=== PATIENT | female | born 1985 | race Caucasian/White ===

== ENCOUNTER 2019-04-21 20:48 | Inpatient (IN) | payer MEDICAID ==
[~2019-04-21] VITALS: Ht 148.6 cm; Wt 73.6 kg
[~2019-04-21 20:48] MED LIST: PREN1TAB74 PO
[2019-04-21 21:13] VITALS: BP 119/72; PULSE 67; RESP 16
[2019-04-21] MEDS ORDERED: FERR134T PO (21:18)
[2019-04-21] MEDS ORDERED: LEVO50TA89 PO (21:18)
[2019-04-21] MEDS ORDERED: LACTATED RINGER'S 1,000 ML IV PRN (22:42)
--- NOTE | 2019-04-21 22:59 | TRIAGE ---
OB Triage Datetime Report Generated by CPN: 04/21/2019 22:59 Datetime: 04/21/2019 22:35 Time of Arrival: 04/21/2019 20:38 EGA: 40.0 Arrived By: Ambulatory Arrived From: Home Chief Complaint: w/ orders for NST/BPP/EFW and c/o ucs q10 min since 1600 and sm amt bleeding Movement: Present Contractions: Regular Time Contractions Began: 04/21/2019 16:00 Contractions: q10 Rupture of Membranes: Denies Vaginal Bleeding: Small Vaginal Discharge: Present Recent Sexual Intercouse: Denies Abdominal Trauma: Not Applicable Patient Complaints: Contractions Time Provider Notified: 04/21/2019 22:35 Provider Notified: Dr Lomeli Initial Plan: NST/BPP/EFW, SVE,UA,URINE CULTURE Datetime: 04/21/2019 22:32 Stage of : OB Triage Labor Evaluation Frequency: 3-7 Monitor Mode: External Quality: Moderate Pattern: Normal: <= 5 Contractions in 10 Minutes Resting Tone [place]: Relaxed Heart Rate FHR Baseline Rate: 135 Monitor Mode: External US FHR Baseline Changes: No Baseline Change Variability: Moderate 6-25 bpm Accelerations: 15X15 Decelerations: Variable Category: Category II Pain Assessment Pain Scale: 5 Pain Presence: Intermittent Pain Type: Contraction Pain Location: Abdomen Vaginal Exam Dilatation (cms): 2.5 Effacement (%): 70 Station: -2 Exam By: E Rashawn Membrane Status: Intact Vaginal Bleeding: Normal Show Cervix, Consistency: Soft Cervix, Position: Posterior Presentation 'A': Cephalic Datetime: 04/21/2019 21:41 Stage of : OB Triage Labor Evaluation Frequency: 3-8 Monitor Mode: External Duration (sec)2399: 40-60 Quality: Mild Pattern: Normal: <= 5 Contractions in 10 Minutes Resting Tone [place]: Relaxed Heart Rate FHR Baseline Rate: 140 Monitor Mode: External US FHR Baseline Changes: No Baseline Change Variability: Moderate 6-25 bpm Accelerations: 15X15 Decelerations: None Category: Category I Datetime: 04/21/2019 21:06 Stage of : OB Triage Maternal Assessment Level of Consciousness: Fully Conscious Headache: Denies Blurred Vision: No Nausea/Vomiting: Denies RUQ Epigastric Pain: Denies Facial Edema: None Monitor Mode: External Monitor Mode: External US Comments: FHR 140 Pain Assessment Pain Scale: 5 Pain Presence: Intermittent Pain Type: Contraction Pain Location: Abdomen
[2019-04-21] MEDS ORDERED: METHYLERGONOVINE 0.2 MG INJ IM PRN (23:00)
[2019-04-21] MEDS ORDERED: BUTORPHANOL 2 MG INJ IV PRN ×2 (23:00)
[2019-04-21] MEDS ORDERED: OXYTOCIN 30 UNITS/LR 500 ML IV SCH ×2 (23:00)
[2019-04-21] MEDS ORDERED: LIDOCAINE 1% (MPF) 30 ML INJ INJ PRN (23:00)
[2019-04-21] MEDS ORDERED: MISOPROSTOL 200 MCG TAB PR PRN (23:00)
[2019-04-21] MEDS ORDERED: IBUPROFEN 600 MG TAB PO PRN (23:00)
[2019-04-21] MEDS ORDERED: CARBOPROST 250 MCG INJ IM PRN (23:00)
[2019-04-21] MEDS ORDERED: OXYTOCIN 30 UNITS/LR 500 ML IV PRN (23:00)
[2019-04-21] MEDS: LACTATED RINGER'S 1,000 ML IV SCH (23:24)
[2019-04-22] MEDS: LACTATED RINGER'S 1,000 ML IV SCH (02:34)
[2019-04-22] MEDS ORDERED: OXYTOCIN 30 UNITS/LR 500 ML IV SCH (03:23)
--- NOTE | 2019-04-22 03:23 | LDN ---
Date/Time of Note Date/Time of Note DATE: 04/22/19 TIME: 03:16 Delivery Summary Patient in dorsal lithotomy position. Prepped in sterille fasion. Pushing with contractionts. head delivered atraumatically. Nouse and mouth sucction. Anterior and posterior shoulders delivered. Infant hand of waithing RN for evaluation. Cord blood sampled. Local anesthesia . Lydocaine [address] degree vaginal laceration repaired wirh 2-0 chromic. Placenta delivered spontaneusly, no bleeding. Count correct , [facility].E[facility] 300 cc Weeks of Gestation 40 Placenta Delivered: Spontaneously Meconium: none Episiotomy: No Anesthesia type: Local Estimated blood loss: 300 Sponge & Needle done & correct: Yes All needle counts correct: Yes JONN DIOP MD Apr 22, 2019 03:23
[2019-04-22] MEDS ORDERED: MISOPROSTOL 200 MCG TAB PR PRN (03:30)
[2019-04-22] MEDS ORDERED: CARBOPROST 250 MCG INJ IM PRN (03:30)
[2019-04-22] MEDS ORDERED: ACETAMINOPHEN 325 MG TAB PO PRN (03:30)
[2019-04-22] MEDS ORDERED: OXYTOCIN 30 UNITS/LR 500 ML IV PRN (03:30)
[2019-04-22] MEDS ORDERED: ONDANSETRON 4 MG INJ IV PRN (03:30)
[2019-04-22] MEDS ORDERED: METHYLERGONOVINE 0.2 MG INJ IM PRN (03:30)
[2019-04-22] MEDS ORDERED: NACL 0.9% 3 ML SYG IV SCH (03:30)
--- NOTE | 2019-04-22 03:32 | HP ---
Date/Time of Note Date/Time of Note DATE: 04/22/19 TIME: 03:29 OB - History Hx of Present Chief Complaint: c/o contractionts : 4 Para: 3 Care: Good Care Medical Complications: None Past Family/Social History * Past Medical, Surgical, Family and Obstetric Histories reviewed from chart. OB Admission Exam Vital Signs Vital Signs Vital Signs Date Temp Pulse Resp B/P (MAP) Pulse Ox O2 O2 Flow FiO2 Time Delivery Rate 04/21/19 98.2 67 16 119/72 Room Air 21:13 (88) Physical Exam Abdomen: WNL Extremities: Normal Cervical Dilatation: 10cm Effacement: 100% Station: +2 Membranes: Ruptured Amniotic Fluid: Clear Heart Rate: 140's Accelerations: Accelerations Present Contractions on Admission: 6-10 Minutes Apart Last 72 hours Lab Results CBC & BMP 04/21/19 23:24 OB Assessment/Plan Reason for admission: active labor Other plan: prepare for delivery JONN DIOP MD Apr 22, 2019 03:31
[2019-04-22 04:45] VITALS: BP 109/62; PULSE 62; RESP 18
[2019-04-22] MEDS: IBUPROFEN 600 MG TAB PO SCH ×4 (05:20→23:46)
[2019-04-22] MEDS: LEVOTHYROXINE 50 MCG TAB PO SCH (06:23)
[2019-04-22 07:30] VITALS: BP 100/61; PULSE 68; RESP 16
[2019-04-22] MEDS: SENNA/DOCUSATE NA (8.6MG/50MG) TAB PO SCH ×2 (09:04→21:27)
[2019-04-22] MEDS: LANOLIN HPA 1 PKT TOP PRN (14:52)
[2019-04-22 15:13] VITALS: BP 99/58; PULSE 66; RESP 16
[2019-04-22 19:10] VITALS: BP 103/57; PULSE 65; RESP 18
[2019-04-23 03:29] VITALS: BP 109/69; PULSE 66; RESP 18
[2019-04-23] MEDS: IBUPROFEN 600 MG TAB PO SCH ×4 (05:42→23:48)
[2019-04-23] MEDS: LEVOTHYROXINE 50 MCG TAB PO SCH (06:17)
[2019-04-23 07:45] VITALS: BP 112/75; PULSE 58; RESP 16
[2019-04-23] MEDS: SENNA/DOCUSATE NA (8.6MG/50MG) TAB PO SCH ×2 (09:10→21:28)
--- NOTE | 2019-04-23 15:42 | DS ---
Date/Time of Note Date/Time of Note Home today or next day DATE: 04/23/19 TIME: 15:40 Obstetrical Discharge Record Final Diagnosis Final Diagnosis: Term delivered Other Final Diagnosis Status post vaginal delivery Vaginal Delivery Obstetrical Delivery: Spontaneous, Laceration, Repaired Condition on Discharge Physical Assessment Last Vitals: See nurse's notes Voiding: Yes Bowel Movement: Yes Breast: Soft, non-tender, Filling Fundus: Firm Abdomen and Incision: Abdomen is soft with firm fundus Episiotomy: Perineum is healing well and appears clean Calf Tenderness: No Patient Condition: Good EPI ARTIS MD Apr 23, 2019 15:41
[2019-04-23] MEDS ORDERED: IBUP-1542 PO (15:43)
--- NOTE | 2019-04-23 15:43 | PD.PPDC ---
[employer] Discharge Instruction Provider Information Physician Information 3-year-old female had spontaneous vaginal delivery Diagnosis Hocca4Lc Final Diagnosis: Qritc3q Status post vaginal delivery Condition [id number] Patient Condition: Srmqe5a Good Diet Mwgki0Hc Diet: Otmpv4z Resume Regular Diet Activity/Restrictions [id number] Activity: Uzdzi2o Normal Activity May Shower Gztmf3Lg Restrictions: Yawcq1t Nothing in the Vagina [id number] Return to Work or School: Mdelq9a Jun 05, 2019 Follow-up Follow-up with Physician: 2, 4, Week/Weeks Return to clinic for [id number] OB Instructions: Zrdcy3w Breast Tenderness Depression Comment: Pelvic rest for 6 weeks EPI ARTIS MD Apr 23, 2019 15:43
[2019-04-23 15:45] VITALS: BP 108/62; PULSE 74; RESP 16
[2019-04-23 19:10] VITALS: BP 118/64; PULSE 66; RESP 18
[2019-04-23] MEDS: LANOLIN HPA 1 PKT TOP PRN (23:47)
[2019-04-24 04:00] VITALS: BP 103/62; PULSE 67; RESP 18
[2019-04-24] MEDS: IBUPROFEN 600 MG TAB PO SCH ×2 (05:44→12:03)
[2019-04-24] MEDS: LEVOTHYROXINE 50 MCG TAB PO SCH (05:44)
[2019-04-24 07:30] VITALS: BP 86/51; PULSE 86; RESP 18
[2019-04-24 08:00] VITALS: BP 113/69; PULSE 72; RESP 18
[2019-04-24] MEDS: SENNA/DOCUSATE NA (8.6MG/50MG) TAB PO SCH (09:36)
--- NOTE | 2019-04-25 16:21 | DELSUM ---
Delivery Summary A-C Datetime Report Generated by CPN: 04/25/2019 16:21 DELIVERY PERSONNEL Narcotics Detective: Osman Rosalia MATERNAL INFORMATION Delivery Anesthesia: None Medications in Delivery: 30 units pitocin Delivery QBL (ml): 300 Placenta Cultured: No Maternal Complications: None LABOR SUMMARY EDC: 04/21/2019 00:00 No. Babies in Womb: 1 Attempted: No Labor Anesthesia: None LABOR INFORMATION Reason for Induction: Not Applicable Onset of Labor: 04/21/2019 16:00 Complete Dilatation: 04/22/2019 02:57 Oxytocin: N/A Group B Beta Strep: Negative Antibiotics # of Doses: 0 Steroids Given: None Reason Steroids Not Administered: Not Applicable MEMBRANES Membranes Rupture Method: Spontaneous Rupture of Membranes: 04/22/2019 02:57 Length of Rupture (hr): 0.00 Amniotic Fluid Color: Light Meconium Amniotic Fluid Amount: Moderate Amniotic Fluid Odor: None STAGES OF LABOR Stage 1 hr: 10 Stage 1 min: 57 Stage 2 hr: 0 Stage 2 min: 0 Stage 3 hr: 0 Stage 3 min: 5 Total Time in Labor hr: 11 Total Time in Labor min: 2 VAGINAL DELIVERY Episiotomy: None Laceration Extension: First Degree Laceration Type: Vaginal Laceration Repair: Not Applicable Initial Vag Sponge Count: 10 Final Vag Sponge Count: 10 Initial Vag Sharps Count: 1 Final Vag Sharps Count: 2 Sponge Count Correct: Yes; Vaginal Sweep Performed Sharps Count Correct: Yes BABY A INFORMATION Infant Delivery Date/Time: 04/22/2019 02:57 Method of Delivery: Vaginal Born in Route : No : N/A Forceps: N/A Vacuum Extraction: N/A Shoulder Dystocia : N/A SHOULDER DYSTOCIA BABY A Infant Delivery Date/Time: 04/22/2019 02:57 PRESENTATION/POSITION BABY A Presentation: Cephalic Cephalic Presentation: Face Vertex Position: Left Occipital Anterior Breech Presentation: N/A PLACENTA INFORMATION BABY A Placenta Delivery Time : 04/22/2019 03:02 Placenta Method of Delivery: Spontaneous Placenta Status: Delivered SCORES BABY A Heart Rate 1 min: >100 bpm Resp Effort 1 min: Good Cry Reflex Irritability 1 min: Cough/Sneeze/Pulls Away Muscle Tone 1 min: Active Motion Color 1 min: Blue/Pale Resuscitation Effort 1 min: Tactile Stimulation SCORE 1 MIN: 8 Heart Rate 5 min: >100 bpm Resp Effort 5 min: Good Cry Reflex Irritability 5 min: Cough/Sneeze/Pulls Away Muscle Tone 5 min: Active Motion Color 5 min: Body [place], Extremit Blue Resuscitation Effort 5 min: Tactile Stimulation SCORE 5 MIN: 9 INFORMATION BABY A Gestational Age at Delivery: 40.1 Gestational Status: Full Term- 39- 40.6 Weeks Infant Outcome : Liveborn Condition : Stable Infant Sex: Female IDENTIFICATION/MEDS BABY A ID Band Number: [id number] ID Band Location: Right Leg; Left Arm Sensor Applied: Yes Sensor Number: [id number] Sensor Location : Cord Clamp Vitamin K Given : Not Given Erythromycin Given: Not Given WEIGHT/LENGTH BABY A Infant Birthweight (gm): 3095 Infant Weight (lb): 6 Infant Weight (oz): 13 Length (in): 18.50 Infant Length (cm): 46.99 CORD INFORMATION BABY A No. Cord Vessels: 3 Nuchal Cord : N/A Cord Blood Taken: Yes Suction: Mouth; Nose ASSESSMENT BABY A Infant Complications: None Physical Findings at Delivery: Within Normal Limits Infant Respirations: Appears Normal Pulp And Paper Tester/ALS Called : No Care By: bethel Transferred To: Remains with Mother
== END 2019-04-24 16:20 | disposition home or self-care (01) | DRG 807 ==
LOC: OBT 20:48 → L-D 20:49 → OBT 22:35 → L-D 22:35 → MS1 04-22 04:28 → PP1 04-22 20:25
PROVIDERS: ADMIT Obstetrics & Gynecology; ATTEND Obstetrics & Gynecology
PROC: 10E0XZZ Delivery of Products of Conception, External Approach (ICD-10-PCS; principal; 2019-04-22)
PROC: 0HQ9XZZ Repair Perineum Skin, External Approach (ICD-10-PCS; 2019-04-22)
DX: O70.0 First degree perineal laceration during delivery (principal); Z37.0 Single live birth; Z3A.40 40 weeks gestation of pregnancy
CPT/HCPCS: 76815; 76818; 81001; 85025; 85610; 85730; 86592; 86850; 86900; 86901; 87086; 87340; G0463; J0595; J2590; J7120